=== PATIENT | female | born 1960 ===

== ENCOUNTER 2025-08-03 13:31 | Day surgery (SDC) | payer MEDICARE, OTHER ==
[~2025-08-03] VITALS: Ht 170.2 cm; Wt 86.2 kg
[~2025-08-03 13:31] MED LIST: Glycopyrrolate 0.2 MG/ML 1MLVIAL ONE; Ondansetron HCl 2 MG / ML 2ML Vial ONE; ePHEDrine Sulfate 50 MG/ML 1ML Injection ONE
[2025-08-03] MEDS ORDERED: ALLO100 (13:58)
[2025-08-03] MEDS ORDERED: MELATONIN5 M1 (13:59)
[2025-08-03] MEDS ORDERED: PREG150 (13:59)
[2025-08-03] MEDS ORDERED: BUPR150ER (13:59)
[2025-08-03] MEDS ORDERED: FURO20 (13:59)
[2025-08-03] MEDS ORDERED: LACT10SY (13:59)
[2025-08-03] MEDS ORDERED: PROP10 (14:00)
[2025-08-03] MEDS ORDERED: ALDACTONE100 MG (14:00)
[2025-08-03] MEDS ORDERED: Vitamin B Comple1 EA (14:00)
== END 2025-08-03 15:34 | disposition home or self-care (01) ==
LOC: ORSCSDS 13:31
PROVIDERS: Specialist
PROC: 0DJ08ZZ Inspection of Upper Intestinal Tract, Via Natural or Artificial Opening Endoscopic (ICD-10-PCS; principal; 2025-08-03 15:15)
DX: K70.30 Alcoholic cirrhosis of liver without ascites (principal); K76.82 Hepatic encephalopathy; K76.6 Portal hypertension; K31.89 Other diseases of stomach and duodenum; I12.9 Hypertensive chronic kidney disease with stage 1 through stage 4 chronic kidney disease, or unspecified chronic kidney disease; N18.2 Chronic kidney disease, stage 2 (mild); Z86.73 Personal history of transient ischemic attack (TIA), and cerebral infarction without residual deficits; Z79.899 Other long term (current) drug therapy
CPT/HCPCS: J0461; J2003; J2405; J7120